=== PATIENT | female | born 1935 | race Caucasian/White ===

== ENCOUNTER 2016-12-11 13:44 | Outpatient (CLI) | payer MEDICARE, OTHER | END 2016-12-11 13:45 | disposition home or self-care (01) | DX: M85.88 Other specified disorders of bone density and structure, other site (principal) ==

== ENCOUNTER 2016-12-29 13:45 | Outpatient (CLI) | payer MEDICARE, OTHER | END 2016-12-29 13:46 | disposition home or self-care (01) | DX: M75.101 Unspecified rotator cuff tear or rupture of right shoulder, not specified as traumatic (principal); M75.51 Bursitis of right shoulder; M75.81 Other shoulder lesions, right shoulder ==

== ENCOUNTER 2017-04-01 12:55 | Outpatient (CLI) | payer MEDICARE, OTHER | END 2017-04-01 12:56 | disposition home or self-care (01) | DX: E04.2 Nontoxic multinodular goiter (principal) ==

== ENCOUNTER 2017-05-26 16:26 | Outpatient (CLI) | payer MEDICARE, OTHER ==
[2017-05-26 16:45] LABS: BASOPHILS # (AUTO) 0.1 10^3/uL (0.0-0.1); BASOPHILS % (AUTO) 0.7 %; EOSINOPHILS # (AUTO) 0.1 10^3/uL (0.0-0.7); HCT - HEMATOCRIT 40.8 % (37.0-47.0); HGB - HEMOGLOBIN 13.5 g/dL (12.0-16.0); LYMPHOCYTES # (AUTO) 2.4 10^3/uL (1.5-3.5); LYMPHOCYTES % (AUTO) 33.8 %; MEAN CORPUSCULAR HGB CONC 33.1 g/dL (32.0-36.0); MEAN CORPUSCULAR VOLUME 87.8 fL (81.0-99.0); MEAN PLATELET VOLUME 8.2 fL (7.9-10.8); MONOCYTES # (AUTO) 0.5 10^3/uL (0.0-1.0); MONOCYTES % (AUTO) 7.8 %; NEUTROPHILS # (AUTO) 3.9 10^3/uL (1.5-6.6); NEUTROPHILS % (AUTO) 55.7 %; RED BLOOD COUNT 4.65 10^6/uL (4.20-5.40); RED CELL DISTRIBUTION WIDTH 13.5 % (12.0-15.0)
== END 2017-05-26 16:27 | disposition home or self-care (01) ==
LOC: LAB 16:26
PROVIDERS: ATTEND Orthopaedic Surgery
DX: T84.84XA Pain due to internal orthopedic prosthetic devices, implants and grafts, initial encounter (principal)
CPT/HCPCS: 36415; 85025; 85651; 86140

== ENCOUNTER 2017-06-10 13:14 | Outpatient (CLI) | payer MEDICARE, OTHER ==
[2017-06-10 13:25] LABS: CREATININE 0.8 mg/dL (0.4-1.0)
[2017-06-10] MEDS ORDERED: GADOBUTROL 7.5 MMOL/7.5 ML VIAL IVP ONE (14:38)
--- NOTE | 2017-06-11 17:16 | MRI Report ---
EXAM: MRI LUMBAR SPINE WITHOUT AND WITH CONTRAST EXAM DATE: 06/10/2017 02:45 PM. CLINICAL HISTORY: Dorsalgia, unspecified. COMPARISONS: None. TECHNIQUE: Multiplanar, multisequence T1-weighted and fluid-sensitive sequences of the lumbar spine f rom T12 to S1 before and after administration of intravenous contrast. IV contrast: Gadolinium. Other : None. FINDINGS: There is straightening of the normal lumbar lordosis. There is a mild decrease in the intervertebral disk space height at T10-T11, L1-L2, L2-L3, L3-L4, mild to moderate at L4-L5. There is a grade 1 ante rolisthesis of L4 on L5. There is desiccation of the disk spaces throughout the lumbar spine. The con us terminates at T12-L1 and is normal. There is a mild to moderate degree of atrophy of the paraspinal musculature. There is mild atrophy of the psoas musculature. There are small areas of Modic type I and type II endplate degenerative change within the L1-L2 throu gh L4-L5 endplates. There is a perineural cyst posterior to S2 measuring 14 x 17 mm. T12-L1: There is a small disk osteophyte complex abutting the sac producing a mild central canal sten osis. There is no significant foraminal stenosis. The facets are normal. L1-L2: There is a small disk osteophyte complex with annular tear abutting the sac producing a mild c entral canal stenosis. There is mild bilateral facet arthropathy. There is mild narrowing of the left neural foramen. L2-L3: There is a small disk osteophyte complex abutting the sac producing a mild central canal steno sis. There is mild bilateral facet arthropathy. There is moderate right and mild to moderate left avelina ral foraminal narrowing. L3-L4: There is a broad-based disk osteophyte complex abutting the sac producing a mild central canal stenosis. There is mild to moderate bilateral facet arthropathy. There is moderate ligamentum flavum hypertrophy. There is moderate right and left neural foraminal narrowing. L4-L5: There is a broad-based disk osteophyte complex abutting the sac with a large superimposed righ t paracentral extrusion of the disk that extends into the right lateral recess and in combination wit h right-sided facet arthropathy produces a severe right lateral recess stenosis and appears to entrap the traversing right L5 nerve root. Recommend correlation for right L5 radiculopathy. There is a mil [id number] central canal stenosis. There are surgical changes of hemilaminectomies. There is mild to moderate left and moderate right facet arthropathy. There is mild to moderate right and left christopher inal stenosis. L5-S1: There is moderate to severe bilateral facet arthropathy. There is a small disk bulge eccentric to the right producing mild narrowing of the right neural foramen. IMPRESSION: 1. There is a broad-based disk osteophyte complex abutting the sac at L4-L5 with a large superimposed right paracentral extrusion of the disk extending into the right lateral recess and in combination w ith facet arthropathy produces a severe right lateral recess stenosis with entrapment of the traversi ng right L5 nerve root. Recommend correlation for right L5 radiculopathy. There are surgical changes of bilateral hemilaminectomies. There is a mild to moderate central canal stenosis. 2. There is a broad-based disk osteophyte complex at L3-L4 producing a mild central canal stenosis. 3. There is a small disk osteophyte complex at L2-L3 producing a mild central canal stenosis. 4. There is a small disk osteophyte complex with annular tear abutting the sac producing a mild centr al canal stenosis. Comment: The following findings are so common in adults without low back pain that while we report th eir presence, they must be interpreted with caution and in the context of the clinical situation. (Re maren Allen et al, Spine 2001) Prevalence of findings in patients without low back pain: Disk degeneration (any evidence): 92% Disk desiccation/T2 signal loss: 83% Disk height loss: 56% Disk bulge: 64% Disk protrusion: 32% Annular tear/high intensity zone: 38% [facility] Referring Provider Line: [phone] SITE ID: [id number]
== END 2017-06-10 13:15 | disposition home or self-care (01) ==
LOC: DI 13:14
PROVIDERS: ATTEND Orthopaedic Surgery
DX: M25.551 Pain in right hip (principal); M79.651 Pain in right thigh; M48.06 Spinal stenosis, lumbar region
CPT/HCPCS: 36415; 72158; 82565; A9585

== ENCOUNTER 2017-09-17 15:34 | Outpatient (CLI) | payer MEDICARE, OTHER ==
[2017-09-17 19:24] LABS: THYROID STIMULATING HORMONE 1.02 uIU/mL (0.34-5.60)
== END 2017-09-17 15:35 | disposition home or self-care (01) ==
LOC: LAB.WCP 15:34
PROVIDERS: ATTEND Physician Assistant Medical
DX: E04.2 Nontoxic multinodular goiter (principal)
CPT/HCPCS: 36415; 84432; 84439; 84443; 84481; 86800

== ENCOUNTER 2018-01-19 14:48 | Outpatient (CLI) | payer MEDICARE, OTHER ==
[2018-01-19 19:09] LABS: BASOPHILS % (AUTO) 0.8 %; EOSINOPHILS # (AUTO) 0.3 10^3/uL (0.0-0.7); EOSINOPHILS % (AUTO) 5.3 %; HGB - HEMOGLOBIN 12.3 g/dL (12.0-16.0); LYMPHOCYTES % (AUTO) 32.2 %; MEAN CORPUSCULAR HEMOGLOBIN 26.5 pg (27.0-31.0); MEAN CORPUSCULAR HGB CONC 31.9 g/dL (32.0-36.0); MEAN CORPUSCULAR VOLUME 82.8 fL (81.0-99.0); MEAN PLATELET VOLUME 9.2 fL (7.9-10.8); MONOCYTES # (AUTO) 0.5 10^3/uL (0.0-1.0); MONOCYTES % (AUTO) 8.5 %; NEUTROPHILS # (AUTO) 3.4 10^3/uL (1.5-6.6); NEUTROPHILS % (AUTO) 53.2 %; PLT - PLATELET COUNT 240 10^3/uL (130-450); RED BLOOD COUNT 4.65 10^6/uL (4.20-5.40); RED CELL DISTRIBUTION WIDTH 16.6 % (12.0-15.0); WHITE BLOOD COUNT 6.3 x10^3/uL (4.8-10.8)
[2018-01-19 19:12] LABS: ALBUMIN 4.1 g/dL (3.2-5.5); ALBUMIN/GLOBULIN RATIO 1.4 (1.0-2.2); BILIRUBIN,TOTAL 0.4 mg/dL (0.2-1.0); CALCIUM 9.6 mg/dL (8.5-10.3)
== END 2018-01-19 14:49 ==
LOC: LAB.WCP 14:48
PROVIDERS: ATTEND Family Medicine
DX: R10.11 Right upper quadrant pain (principal)
CPT/HCPCS: 36415; 80053; 85025

== ENCOUNTER 2018-01-20 13:41 | Outpatient (CLI) | payer MEDICARE, OTHER ==
[2018-01-20] MEDS ORDERED: IOPAMIDOL-300 100 ML VIAL IVP ONE (15:14)
[2018-01-20] MEDS ORDERED: IOPAMIDOL-300 50 ML VIAL PO ONE (15:14)
--- NOTE | 2018-01-21 11:41 | CT Report ---
CT OF THE ABDOMEN WITH CONTRAST: 01/20/2018 CLINICAL INDICATION: Right upper quadrant pain. TECHNIQUE: Axial CT images of the abdomen were obtained with 100 mL Isovue 300 intravenously as well as oral contrast. FINDINGS: Limited evaluation of the lung bases demonstrates calcified granulomas and calcified lymph nodes. ABDOMEN: The liver is unremarkable. The spleen demonstrates multiple old calcified granulomas. The adrenal glands and pancreas are unremarkable. The kidneys demonstrate no hydronephrosis or focal renal lesion. The gallbladder demonstrates multiple calculi. No pericholecystic inflammation is appreciated. No bowel dilatation, free gas, or free fluid is seen. No abdominal adenopathy is appreciated. Osseous structures demonstrate degenerative changes. IMPRESSION: CHOLELITHIASIS. In accordance with CT protocol optimization, one or more of the following dose reduction techniques were utilized for this exam: automated exposure control, adjustment of mA and/or KV based on patient size, or use of iterative reconstructive technique. TD: 01/21/2018 11:40
== END 2018-01-20 13:42 | disposition home or self-care (01) ==
LOC: DI 13:41
PROVIDERS: ATTEND Family Medicine
DX: K80.20 Calculus of gallbladder without cholecystitis without obstruction (principal)
CPT/HCPCS: 74160; Q9967

== ENCOUNTER 2018-03-04 11:31 | Outpatient (CLI) | payer MEDICARE, OTHER ==
[2018-03-04 19:36] LABS: ALBUMIN 4.1 g/dL (3.2-5.5); ALBUMIN/GLOBULIN RATIO 1.5 (1.0-2.2); BILIRUBIN,TOTAL 0.6 mg/dL (0.2-1.0); CALCIUM 9.1 mg/dL (8.5-10.3); TOTAL PROTEIN 6.9 g/dL (6.7-8.2)
[2018-03-04 19:37] LABS: BASOPHILS # (AUTO) 0.1 10^3/uL (0.0-0.1); BASOPHILS % (AUTO) 0.8 %; EOSINOPHILS # (AUTO) 0.3 10^3/uL (0.0-0.7); EOSINOPHILS % (AUTO) 4.7 %; HGB - HEMOGLOBIN 12.8 g/dL (12.0-16.0); LYMPHOCYTES # (AUTO) 2.1 10^3/uL (1.5-3.5); LYMPHOCYTES % (AUTO) 29.6 %; MEAN CORPUSCULAR HEMOGLOBIN 27.3 pg (27.0-31.0); MEAN CORPUSCULAR HGB CONC 31.7 g/dL (32.0-36.0); MEAN CORPUSCULAR VOLUME 86.2 fL (81.0-99.0); MONOCYTES # (AUTO) 0.6 10^3/uL (0.0-1.0); MONOCYTES % (AUTO) 8.9 %; NEUTROPHILS # (AUTO) 3.9 10^3/uL (1.5-6.6); PLT - PLATELET COUNT 238 10^3/uL (130-450); RED BLOOD COUNT 4.67 10^6/uL (4.20-5.40); RED CELL DISTRIBUTION WIDTH 15.5 % (12.0-15.0)
== END 2018-03-04 11:32 | disposition home or self-care (01) ==
LOC: LAB.WCP 11:31
PROVIDERS: ATTEND Family Medicine
DX: M51.06 Intervertebral disc disorders with myelopathy, lumbar region (principal)
CPT/HCPCS: 36415; 80053; 85025

== ENCOUNTER 2018-04-29 08:00 | Outpatient (CLI) | payer MEDICARE, OTHER ==
[2018-04-29 12:57] LABS: THYROID STIMULATING HORMONE 1.53 uIU/mL (0.34-5.60)
[2018-04-29 12:58] LABS: FREE T4 (FREE THYROXINE) 0.66 ng/dL (0.58-1.64)
[2018-04-29 13:02] LABS: BASOPHILS % (AUTO) 0.6 %; EOSINOPHILS # (AUTO) 0.2 10^3/uL (0.0-0.7); EOSINOPHILS % (AUTO) 4.1 %; LYMPHOCYTES % (AUTO) 33.6 %; MEAN CORPUSCULAR HGB CONC 32.6 g/dL (32.0-36.0); MEAN PLATELET VOLUME 9.4 fL (7.9-10.8); MONOCYTES # (AUTO) 0.5 10^3/uL (0.0-1.0); NEUTROPHILS # (AUTO) 3.2 10^3/uL (1.5-6.6); NEUTROPHILS % (AUTO) 52.7 %; PLT - PLATELET COUNT 227 10^3/uL (130-450); RED BLOOD COUNT 4.65 10^6/uL (4.20-5.40); RED CELL DISTRIBUTION WIDTH 14.6 % (12.0-15.0); WHITE BLOOD COUNT 6.1 x10^3/uL (4.8-10.8)
[2018-04-29 13:16] LABS: ALBUMIN 3.7 g/dL (3.2-5.5); ALBUMIN/GLOBULIN RATIO 1.2 (1.0-2.2); BILIRUBIN,TOTAL 0.4 mg/dL (0.2-1.0); CALCIUM 9.3 mg/dL (8.5-10.3); CREATININE 0.7 mg/dL (0.4-1.0); TOTAL PROTEIN 6.9 g/dL (6.7-8.2)
== END 2018-04-29 08:01 | disposition home or self-care (01) ==
LOC: LAB.WCP 08:00
PROVIDERS: ATTEND Family Medicine
DX: R03.0 Elevated blood-pressure reading, without diagnosis of hypertension (principal); E04.2 Nontoxic multinodular goiter
CPT/HCPCS: 36415; 80053; 84439; 84443; 84481; 85025

== ENCOUNTER 2018-05-08 11:52 | Outpatient (CLI) | payer MEDICARE, OTHER ==
--- NOTE | 2018-05-09 08:15 | Ultrasound Report ---
Procedure Date: 05/08/2018 Accession Number: [id number] / [id number] Procedure: US - Head or Neck Soft Tissue CPT Code: FULL RESULT: EXAM: THYROID ULTRASOUND EXAM DATE: 05/08/2018 12:59 PM. CLINICAL HISTORY: GOITER,MULTINODULAR,DYSPHAGIA,UNSPECIFIED. COMPARISON: 04/01/2017. TECHNIQUE: Real time sonographic imaging of the thyroid was performed by the environmental lawyer. Multiple business banking representative static images were saved for review. FINDINGS: THYROID GLAND: Right Lobe: 7.3 x 3.4 x 5.1 cm, volume 66 cc. Previously 59 cc Diffusely heterogeneous filled with multiple nodules Left Lobe: 5.7 x 2.3 x 2.7 cm, volume 18.5 cc. . Previously 17 cc Diffusely heterogeneous filled with multiple nodules Isthmus: 1.2 cm AP. Enlarged LYMPH NODES: No adenopathy demonstrated in the central or lateral compartment. OTHER: None. IMPRESSION: Stable Diffuse multinodular goiter with markedly enlarged right lobe and mildly enlarged left lobe Management recommendations are based on 2015 [place] [employer] Management Guidelines for Adult Patients with Thyroid Nodules and Differentiated Thyroid Cancer. [facility]
== END 2018-05-08 11:53 | disposition home or self-care (01) ==
LOC: DI 11:52
PROVIDERS: ATTEND Family Medicine
DX: E04.2 Nontoxic multinodular goiter (principal); R13.10 Dysphagia, unspecified
CPT/HCPCS: 76536

== ENCOUNTER 2018-06-01 09:10 | Outpatient (CLI) | payer MEDICARE, OTHER ==
--- NOTE | 2018-06-01 13:12 | XRAY Report ---
Procedure Date: 06/01/2018 Accession Number: [id number] / [id number] Procedure: FL - Modified Barium Swallow W/SP CPT Code: FULL RESULT: EXAM: Modified Barium Swallow W/SP DATE: 06/01/2018 9:53 AM CLINICAL HISTORY: DYSPHAGIA,UNSPECIFIED COMPARISON: None. TECHNIQUE: Under the direction of speech pathology, patient swallowed various consistencies of barium under lateral fluoroscopic observation of the neck. Fluoroscopic exposure time: 44 seconds. Number of fluoroscopic images: 36. Cine fluoroscopy recorded. FINDINGS: Airway Protection: Normal epiglottic motion. No episodes of tracheal penetration or aspiration with all consistencies of barium. Other: None. Please also refer to full report from Speech Pathology. IMPRESSION: Normal modified barium swallow. No aspiration identified. [facility]
== END 2018-06-01 09:11 | disposition home or self-care (01) ==
LOC: DI 09:10
PROVIDERS: ATTEND Family Medicine
DX: R13.10 Dysphagia, unspecified (principal)
CPT/HCPCS: 74230; 92611; G8996; G8997; G8998

== ENCOUNTER 2018-06-24 13:32 | Outpatient (CLI) | payer MEDICARE, OTHER ==
[2018-06-24 19:22] LABS: CREATININE 0.9 mg/dL (0.4-1.0)
== END 2018-06-24 13:33 | disposition home or self-care (01) ==
LOC: LAB.WCP 13:32
PROVIDERS: ATTEND Orthopaedic Surgery
DX: R94.4 Abnormal results of kidney function studies (principal)
CPT/HCPCS: 36415; 82565; 84520

== ENCOUNTER 2018-12-14 15:56 | Outpatient (CLI) | payer MEDICARE, OTHER ==
--- NOTE | 2018-12-14 17:02 | XRAY Report ---
Reason: COUGH Procedure Date: 12/14/2018 Accession Number: [id number] / [id number] Procedure: WCP - Chest 2 View X-Ray CPT Code: 29980 FULL RESULT: EXAM: CHEST RADIOGRAPHY EXAM DATE: 12/14/2018 03:56 PM. CLINICAL HISTORY: COUGH. Wheezing. COMPARISON: CHEST 2 VIEW PA/LAT 09/11/2016 5:34 AM. TECHNIQUE: 2 views. FINDINGS: Lungs/Pleura: No focal opacities evident. No pleural effusion. No pneumothorax. Normal volumes. Mediastinum: Atherosclerotic aortic calcifications. Other: Old left rib fractures. Bones appear osteopenic. Generalized thoracic kyphosis. IMPRESSION: No consolidation demonstrated. [facility]
== END 2018-12-14 23:59 | disposition home or self-care (01) ==
LOC: DI.WCP 15:56
PROVIDERS: ATTEND Family Medicine
DX: R05 Cough (principal)
CPT/HCPCS: 71046

== ENCOUNTER 2019-10-20 14:54 | Outpatient (CLI) | payer MEDICARE, OTHER ==
--- NOTE | 2019-10-21 09:42 | XRAY Report ---
Reason: COUGH Procedure Date: 10/20/2019 Accession Number: [id number] / [id number] Procedure: WCP - Chest 2 View X-Ray CPT Code: 05730 Final Report FULL RESULT: EXAM: CHEST RADIOGRAPHY EXAM DATE: 10/20/2019 02:54 PM HISTORY: COUGH COMPARISON: CHEST 2 VIEW 12/14/2018 3:33 PM TECHNIQUE: Two Views FINDINGS: Lungs/Pleura: Mildly limited by under expansion. No apparent focal consolidation. No edema or pleural effusion. Cardiomediastinal silhouette: Mild cardiomegaly. Other: Mild scoliosis with a broad convex right curvature of the thoracic spine mid to lower aspects. IMPRESSION: Mild cardiomegaly. No acute cardiopulmonary disease. [facility]
== END 2019-10-20 23:59 | disposition home or self-care (01) ==
LOC: DI.WCP 14:54
PROVIDERS: ATTEND Family Medicine
DX: R05 Cough (principal); I51.7 Cardiomegaly
CPT/HCPCS: 71046

== ENCOUNTER 2020-09-02 07:00 | Outpatient (CLI) | payer MEDICARE, OTHER | END 2020-09-02 23:59 | disposition home or self-care (01) | LOC: LAB.R 07:00 | PROVIDERS: ATTEND Physician Assistant | DX: N39.0 Urinary tract infection, site not specified (principal) | CPT/HCPCS: 87086; 87181 ==

== ENCOUNTER 2020-12-02 08:00 | Outpatient (CLI) | payer MEDICARE, OTHER ==
[2020-12-02 17:56] LABS: BASOPHILS % (AUTO) 0.6 %; EOSINOPHILS # (AUTO) 0.6 10^3/uL (0.0-0.7); EOSINOPHILS % (AUTO) 8.9 %; HGB - HEMOGLOBIN 11.9 g/dL (12.0-16.0); LYMPHOCYTES # (AUTO) 1.9 10^3/uL (1.5-3.5); MEAN CORPUSCULAR HEMOGLOBIN 28.4 pg (27.0-31.0); MEAN CORPUSCULAR VOLUME 91.6 fL (81.0-99.0); MEAN PLATELET VOLUME 10.5 fL (7.9-10.8); MONOCYTES # (AUTO) 0.6 10^3/uL (0.0-1.0); MONOCYTES % (AUTO) 8.6 %; NEUTROPHILS # (AUTO) 3.9 10^3/uL (1.5-6.6); NEUTROPHILS % (AUTO) 54.5 %; PLT - PLATELET COUNT 260 10^3/uL (130-450); RED BLOOD COUNT 4.19 10^6/uL (4.20-5.40); RED CELL DISTRIBUTION WIDTH 14.2 % (12.0-15.0); WHITE BLOOD COUNT 7.2 x10^3/uL (4.8-10.8)
[2020-12-02 18:08] LABS: ALBUMIN 3.8 g/dL (3.2-5.5); ALBUMIN/GLOBULIN RATIO 1.1 (1.0-2.2); BILIRUBIN,TOTAL 0.5 mg/dL (0.2-1.0); CALCIUM 9.9 mg/dL (8.5-10.3); CREATININE 0.8 mg/dL (0.4-1.0); TOTAL PROTEIN 7.2 g/dL (6.7-8.2)
[2020-12-02 20:10] LABS: HEMOGLOBIN A1c% 5.4 % (4.27-6.07)
== END 2020-12-02 08:01 | disposition home or self-care (01) ==
LOC: LAB.WCP 08:00
PROVIDERS: ATTEND Family Medicine
DX: R73.01 Impaired fasting glucose (principal); E04.2 Nontoxic multinodular goiter; Z79.899 Other long term (current) drug therapy
CPT/HCPCS: 36415; 80053; 83036; 84443; 85025

== ENCOUNTER 2021-05-16 11:49 | Outpatient (CLI) | payer MEDICARE, OTHER | END 2021-05-16 23:59 | disposition home or self-care (01) | LOC: LAB.N 11:49 | PROVIDERS: ATTEND Emergency Medicine | DX: L03.115 Cellulitis of right lower limb (principal); L02.415 Cutaneous abscess of right lower limb | CPT/HCPCS: 87070; 87181; 87205 ==

== ENCOUNTER 2021-10-09 14:12 | Outpatient (CLI) | payer MEDICARE, OTHER ==
--- NOTE | 2021-10-09 15:56 | XRAY Report ---
PROCEDURE: Chest 2 View X-Ray INDICATIONS: DYSPNEA ON EXERTION TECHNIQUE: 2 view(s) of the chest. COMPARISON: 10/20/2009 FINDINGS: Surgical changes and devices: None. Lungs and pleura: No pleural effusions or pneumothorax. Lungs are clear. Mediastinum: Mediastinal contours are normal. Heart size is normal. Bones and chest wall: No suspicious bony abnormalities. Soft tissues appear unremarkable. IMPRESSION: No acute cardiopulmonary process demonstrated radiographically. Reviewed by: Puneet Keller MD on 10/09/2021 3:55 PM PST Approved by: Puneet Keller MD on 10/09/2021 3:55 PM [facility] Station ID: [id number]
== END 2021-10-09 14:13 | disposition home or self-care (01) ==
LOC: DI.N 14:12
PROVIDERS: ATTEND Physician Assistant Medical
DX: R06.09 Other forms of dyspnea (principal)

== ENCOUNTER 2021-11-21 08:00 | Outpatient (CLI) | payer MEDICARE, OTHER ==
[2021-11-21 12:29] LABS: BASOPHILS % (AUTO) 0.5 %; EOSINOPHILS # (AUTO) 0.3 10^3/uL (0.0-0.7); EOSINOPHILS % (AUTO) 5.3 %; HCT - HEMATOCRIT 40.6 % (37.0-47.0); HGB - HEMOGLOBIN 12.7 g/dL (12.0-16.0); LYMPHOCYTES # (AUTO) 2.4 10^3/uL (1.5-3.5); LYMPHOCYTES % (AUTO) 38.9 %; MEAN CORPUSCULAR HEMOGLOBIN 28.6 pg (27.0-31.0); MEAN CORPUSCULAR HGB CONC 31.3 g/dL (32.0-36.0); MEAN CORPUSCULAR VOLUME 91.4 fL (81.0-99.0); MEAN PLATELET VOLUME 11.3 fL (7.9-10.8); MONOCYTES # (AUTO) 0.5 10^3/uL (0.0-1.0); MONOCYTES % (AUTO) 7.5 %; NEUTROPHILS # (AUTO) 2.9 10^3/uL (1.5-6.6); NEUTROPHILS % (AUTO) 47.5 %; PLT - PLATELET COUNT 240 10^3/uL (130-450); RED BLOOD COUNT 4.44 10^6/uL (4.20-5.40); RED CELL DISTRIBUTION WIDTH 13.8 % (12.0-15.0)
[2021-11-21 12:45] LABS: ALBUMIN 4.2 g/dL (3.2-5.5); ALBUMIN/GLOBULIN RATIO 1.3 (1.0-2.2); ALKALINE PHOSPHATASE 39 IU/L (42-121); ALT ALANINE AMINOTRANSFERASE 22 IU/L (10-60); AST ASPARTATE AMINOTRANSFERASE 26 IU/L (10-42); BILIRUBIN,TOTAL 0.8 mg/dL (0.2-1.0); BUN - BLOOD UREA NITROGEN 21 mg/dL (6-20); CALCIUM 9.5 mg/dL (8.5-10.3); CARBON DIOXIDE - CO2 27 mmol/L (21-32); CHLORIDE 101 mmol/L (101-111); CHOL/HDL RATIO 4.1 (<4.4); CHOLESTEROL 235 mg/dL; CREATININE 0.8 mg/dL (0.4-1.0); GFR - MDRD 68 (>89); GLUCOSE 115 mg/dL (70-100); HDL CHOLESTEROL 57 mg/dL; LDL CHOLESTEROL,CALCULATED 155 mg/dL; LDL/HDL RATIO 2.7 (<4.4); POTASSIUM 3.9 mmol/L (3.5-5.0); SODIUM 139 mmol/L (135-145); TOTAL PROTEIN 7.5 g/dL (6.7-8.2); TRIGLYCERIDES 115 mg/dL; VLDL CHOLESTEROL 23 mg/dL
== END 2021-11-21 23:59 | disposition home or self-care (01) ==
LOC: LAB.WCP 08:00
PROVIDERS: ATTEND Physician Assistant Medical
DX: R73.01 Impaired fasting glucose (principal); R06.09 Other forms of dyspnea
CPT/HCPCS: 36415; 80053; 80061; 83721; 85025

== ENCOUNTER 2022-05-20 08:00 | Outpatient (CLI) | payer MEDICARE, OTHER ==
[2022-05-20 17:41] LABS: BILIRUBIN,URINE NEGATIVE (NEGATIVE); GLUCOSE, URINE (UA) NEGATIVE (NEGATIVE); KETONES,URINE (UA) NEGATIVE (NEGATIVE); LEUKOCYTE ESTERASE, URINE MODERATE (NEGATIVE); NITRITE,URINE NEGATIVE (NEGATIVE); OCCULT BLOOD,URINE SMALL (NEGATIVE); PROTEIN,URINE NEGATIVE (NEGATIVE); UROBILINOGEN,URINE 0.2 (NORMAL) E.U./dL (NORMAL)
[2022-05-20 17:42] LABS: CLARITY,URINE HAZY (CLEAR)
[2022-05-20 18:04] LABS: BACTERIA,URINE Rare /HPF (None Seen); SQUAMOUS EPITHELIAL CELL,UR RARE Squamous (<= Few); WBC,URINE >25 /HPF (0-5)
== END 2022-05-20 23:59 | disposition home or self-care (01) ==
LOC: LAB.N 08:00
PROVIDERS: ATTEND Emergency Medicine
DX: N39.0 Urinary tract infection, site not specified (principal)
CPT/HCPCS: 81001; 87086; 87181

== ENCOUNTER 2022-08-09 15:49 | Outpatient (CLI) | payer MEDICARE, OTHER | END 2022-08-09 15:50 | disposition EMS.NT | LOC: EMS 15:49 | DX: R06.00 Dyspnea, unspecified (principal); F41.9 Anxiety disorder, unspecified ==

== ENCOUNTER 2022-08-18 17:50 | Outpatient (CLI) | payer MEDICARE, OTHER | END 2022-08-18 23:59 | disposition short-term general hospital (02) | LOC: EMS 17:50 | DX: R06.00 Dyspnea, unspecified (principal); R05.9 Cough, unspecified; R09.89 Other specified symptoms and signs involving the circulatory and respiratory systems | CPT/HCPCS: A0425; A0429; A0888 ==

== ENCOUNTER 2023-06-24 12:42 | Outpatient (CLI) | payer MEDICARE, OTHER ==
[2023-06-24 13:20] LABS: ALBUMIN 4.2 g/dL (3.2-5.5); ALBUMIN/GLOBULIN RATIO 1.3 (1.0-2.2); BILIRUBIN,TOTAL 0.5 mg/dL (0.2-1.0); CALCIUM 9.5 mg/dL (8.5-10.3); CREATININE 0.9 mg/dL (0.6-1.3); POTASSIUM 4.2 mmol/L (3.5-4.5); TOTAL PROTEIN 7.4 g/dL (6.4-8.9)
--- NOTE | 2023-06-24 13:33 | DEXA Report ---
PROCEDURE: Dexa Spine and/or Hip INDICATIONS: OSTEOPENIA TECHNIQUE: Dual energy x-ray absorptiometry (DXA) was performed on a [employer] System. Regions measur ed are the AP Spine, femoral neck, and if needed forearm. COMPARISON: 12/11/2016 FINDINGS: Lumbar Spine: Bone Mineral Density 1.358 g/cm/cm,T score 1.5. Since the most recent prior study, there has been a statistically significant increase in bone mineral density by 10.5 percent. Left Femoral Neck: Bone Mineral Density 0.777 g/cm/cm, T score -1.9. Left Hip: Bone Mineral Density 0.860 g/cm/cm,T score -1.2. Since the most recent prior study, there has been a statistically significant decrease in bone mineral density by -2.5 percent. (T score greater or equal to -1.0: NORMAL) (T score from -1.1 to -2.4: OSTEOPENIA) (T score less than or equal to -2.5 to: OSTEOPOROSIS) Impression: By WHO criteria, this patient has low bone density (osteopenia). Interval statistical increase in bone minteral density of the lumbar spine. Interval statistical decr ease in bone minteral density of the hip. Patients with diagnosis of osteoporosis or osteopenia should have regular bone mineral density assess ment. For those eligible for Medicare, routine testing is allowed once every 2 years. Testing frequ ency can be increased for patients who have rapidly progressing disease or for those who are receivin g medical therapy to restore bone mass. Reviewed by: Isai Waite MD on 06/24/2023 1:31 PM PDT Approved by: Isai Waite MD on 06/24/2023 1:31 PM PDT Station ID: [id number]
--- NOTE | 2023-06-24 13:34 | XRAY Report ---
PROCEDURE: Chest 2 View X-Ray INDICATIONS: SOB TECHNIQUE: 2 views of the chest were acquired. COMPARISON: Chest x-ray 05/20/2023. FINDINGS: Surgical changes and devices: None. Lungs and pleura: No pleural effusions or pneumothorax. Lungs are clear. Mediastinum: Mediastinal contours appear normal. Atherosclerotic vascular calcifications of the tho racic aorta. Heart size is normal. Bones and chest wall: No suspicious bony lesions. Degenerative changes of the spine. Overlying soft tissues appear unremarkable. IMPRESSION: No acute cardiopulmonary process. Reviewed by: Isai Waite MD on 06/24/2023 1:32 PM PDT Approved by: Isai Waite MD on 06/24/2023 1:32 PM PDT Station ID: [id number]
== END 2023-06-24 12:43 | disposition home or self-care (01) ==
LOC: DI 12:42
PROVIDERS: ATTEND Physician Assistant Medical
DX: R06.02 Shortness of breath (principal); M85.80 Other specified disorders of bone density and structure, unspecified site; I35.1 Nonrheumatic aortic (valve) insufficiency
CPT/HCPCS: 36415; 80053; 83880

== ENCOUNTER 2023-10-22 12:16 | Outpatient (CLI) | payer MEDICARE, OTHER ==
--- NOTE | 2023-10-22 13:45 | XRAY Report ---
PROCEDURE: Chest 2 View X-Ray INDICATIONS: SHORTNESS OF BREATH TECHNIQUE: 2 views of the chest were acquired. COMPARISON: Chest x-ray 06/24/2023. FINDINGS: Surgical changes and devices: None. Lungs and pleura: No pleural effusions or pneumothorax. Lungs are clear. Mediastinum: Mediastinal contours appear normal. Atherosclerotic vascular calcifications. Heart siz e is normal. Bones and chest wall: No suspicious bony lesions. Degenerative changes of the spine. Overlying soft tissues appear unremarkable. IMPRESSION: No acute cardiopulmonary process. Reviewed by: Isai Waite MD on 10/22/2023 1:44 PM PST Approved by: Isai Waite MD on 10/22/2023 1:44 PM PST Station ID: [id number]
== END 2023-10-22 12:17 | disposition home or self-care (01) ==
LOC: DI 12:16
PROVIDERS: ATTEND Physician Assistant Medical
DX: R06.02 Shortness of breath (principal)

== ENCOUNTER 2024-01-18 07:50 | Outpatient (CLI) | payer MEDICARE, OTHER | END 2024-01-18 23:59 | disposition short-term general hospital (02) | LOC: EMS 07:50 | DX: S79.921A Unspecified injury of right thigh, initial encounter (principal); M54.50 Low back pain, unspecified; W18.39XA Other fall on same level, initial encounter; Y92.009 Unspecified place in unspecified non-institutional (private) residence as the place of occurrence of the external cause | CPT/HCPCS: A0425; A0427; A0888 ==

== ENCOUNTER 2024-06-20 16:43 | Outpatient (CLI) | payer MEDICARE, OTHER | END 2024-06-20 16:44 | disposition critical access hospital (66) | LOC: EMS 16:43 | DX: I95.9 Hypotension, unspecified (principal); R53.1 Weakness; R51.9 Headache, unspecified; R20.0 Anesthesia of skin; R53.83 Other fatigue | CPT/HCPCS: A0425; A0429 ==

== ENCOUNTER 2024-06-20 17:06 | Emergency (ER) | payer MEDICARE, OTHER ==
--- NOTE | 2024-06-20 17:33 | ED Physician Documentation ---
History of Present Illness - Stated complaint Stated Complaint: WEAK/SOA - Chief complaint Chief Complaint: General - History obtained from History obtained from: Patient, EMS - History of Present Illness Timing: Today Pain level max: 0 Pain level now: 0 - Additonal information Additional information: Patient is an 88-year-old female who who presents to the emergency department for "not feeling right" she states that she just felt weak and like something was not right. She states that she checked her blood pressure and it was low around 100 systolic. She states she normally runs 1 30-1 40. Does have a history of heart failure. No chest pain. She felt like she was "fluttering" in her body. EMS brought her to the emergency department and she states that she is feeling better now. She did physical therapy yesterday. No fevers. No cough. No congestion. No dyspnea. She is on diuretics at home. No recent illnesses. No focal neurological deficits. No focal weakness. No difficulty speaking or swallowing. Review of Systems Constitutional: denies: Fever, Chills Nose: denies: Rhinorrhea / runny nose, Congestion Respiratory: denies: Cough GI: denies: Vomiting, Diarrhea Skin: denies: Rash Musculoskeletal: denies: Neck pain, Back pain Neurologic: denies: Headache PD PAST MEDICAL HISTORY - Past Medical History Past Medical History: Yes Cardiovascular: Congestive heart failure, [place] Neuro: None Endocrine/Autoimmune: None GI: None : Other HEENT: None Psych: None Musculoskeletal: None Derm: None - Past Surgical History Past Surgical History: Yes Ortho: Hip replacement, Knee replacement - Present Medications Home Medications: Ambulatory Orders Medication Instructions Recorded Confirmed Gabapentin 600 mg PO BID 09/08/16 09/09/16 traZODone [Desyrel] 50 mg PO QPM PRN 09/09/16 09/09/16 Pregabalin [Lyrica] 200 mg PO BID 09/10/16 09/10/16 - Allergies Allergies/Adverse Reactions: Allergies Allergy/AdvReac Type Severity Reaction Status Date / Time levofloxacin [From Levaquin] Allergy Unknown Verified 06/20/24 17:21 - Social History Does the pt smoke?: No Smoking Status: Never smoker Does the pt drink ETOH?: No Does the pt have substance abuse?: No - Immunizations Immunizations are current?: Yes PD ED PE NORMAL - Vitals Vital signs reviewed: Yes - General General: Alert and oriented X 3, No acute distress - HEENT HEENT: PERRL, Moist mucous membranes - Neck Neck: Supple, no meningeal sign - Cardiac Cardiac: RRR, Strong equal pulses - Respiratory Respiratory: No respiratory distress, Clear bilaterally - Abdomen Abdomen: Soft, Non tender, Non distended - Derm Derm: Warm and dry - Extremities Extremities: Other (Trace edema bilateral lower extremity) - Neuro Neuro: Alert and oriented X 3, cooler servicer 2-12 intact, No motor deficit, No sensory deficit, Normal speech Eye Opening: Spontaneous Motor: Obeys Commands Verbal: Oriented GCS Score: 15 - Psych Psych: Normal mood, Normal affect Results - Vitals Vitals: Vital Signs - 24 hr 06/20/24 06/20/24 17:21 19:03 Temperature 36.5 C Heart Rate 64 64 Respiratory 18 15 Rate Blood Pressure 113/54 L 147/67 H O2 Saturation 95 98 Oxygen O2 Source Room air - EKG (time done) 1748 EKG releavant findings:: EKG personally interpreted by author of this note. Relevant findings are: Rate: Rate (enter#) (62) Rhythm: NSR [place]: Normal Intervals: Prolonged MA QRS: Normal, LVH Ischemia: Q waves (III, aVF) - Labs Labs: Laboratory Tests 06/20/24 06/20/24 06/20/24 17:27 17:27 17:27 WBC 7.9 RBC 3.76 L Hgb 10.3 L Hct 32.9 L MCV 87.5 MCH 27.4 MCHC 31.3 L RDW 14.8 Plt Count 265 MPV 10.4 Neut # (Auto) 4.2 Lymph # (Auto) 2.3 [place] # (Auto) 0.7 Eos # (Auto) 0.6 Baso # (Auto) 0.1 Absolute Nucleated RBC 0.00 Nucleated RBC % 0.0 Sodium 138 Potassium 4.0 Chloride 103 Carbon Dioxide 28 Anion Gap 7.0 BUN 23 H Creatinine 1.3 Estimated GFR (MDRD) 39 L Glucose 132 H Calcium 9.2 Phosphorus 4.0 Magnesium 1.7 Total Bilirubin 0.4 AST 17 ALT 10 Alkaline Phosphatase 50 Troponin I High Sens 12.5 B-Natriuretic Peptide 82 Total Protein 6.8 Albumin 3.8 Globulin 3.0 Albumin/Globulin Ratio 1.3 Lipase 47 - Rads (name of study) cxr Relevant Findings:: Final report received, See rad report PD Medical Decision Making - ED course Complexity details: reviewed results, re-evaluated patient, considered differential, d/w patient ED course: 88-year-old female given IV fluids. Asymptomatic here. She is very well- appearing, nontoxic. Afebrile. No focal neurological deficits. NIH stroke scale of 0. Troponin is negative. Ambulating without difficulty. Possible that she is starting to develop a viral syndrome? She does have a history of pneumonia, but is not febrile, not coughing, no elevated white blood cell count. No evidence of pneumonia clinically. Therefore we will hold antibiotics at this time, possible scarring in the lungs given her prior infections? Patient counseled regarding signs and symptoms for which I believe and urgent re- evaluation would be necessary. Patient with good understanding of and agreement to plan and is comfortable going home at this time This document was made in part using voice recognition software. While efforts are made to proofread this document, sound alike and grammatical errors may occur. Departure - Departure Disposition: 01 Home, Self Care Clinical Impression: Dehydration Condition: Good Instructions: ED Dehydration Follow-Up: Minerva Grey PA-C [Primary Care Provider] - Within 1 week Comments: Please continue your current medications at home. Your laboratory testing does not show any significant abnormalities today. Your chest x-ray may show an early viral illness, but you are not having symptoms such as fever and coughing, these may however develop over the next day or 2. Please return if you worsen. Forms: PCP List Discharge Date/Time: 06/20/24 19:03
[2024-06-20 17:39] LABS: BASOPHILS # (AUTO) 0.1 10^3/uL (0.0-0.1); BASOPHILS % (AUTO) 0.6 %; EOSINOPHILS # (AUTO) 0.6 10^3/uL (0.0-0.7); EOSINOPHILS % (AUTO) 7.4 %; HCT - HEMATOCRIT 32.9 % (37.0-47.0); HGB - HEMOGLOBIN 10.3 g/dL (12.0-16.0); LYMPHOCYTES # (AUTO) 2.3 10^3/uL (1.5-3.5); LYMPHOCYTES % (AUTO) 29.2 %; MEAN CORPUSCULAR HEMOGLOBIN 27.4 pg (27.0-31.0); MEAN CORPUSCULAR HGB CONC 31.3 g/dL (32.0-36.0); MEAN CORPUSCULAR VOLUME 87.5 fL (81.0-99.0); MEAN PLATELET VOLUME 10.4 fL (7.9-10.8); MONOCYTES # (AUTO) 0.7 10^3/uL (0.0-1.0); MONOCYTES % (AUTO) 9.3 %; NEUTROPHILS # (AUTO) 4.2 10^3/uL (1.5-6.6); NEUTROPHILS % (AUTO) 53.1 %; PLT - PLATELET COUNT 265 10^3/uL (130-450); RED BLOOD COUNT 3.76 10^6/uL (4.20-5.40); RED CELL DISTRIBUTION WIDTH 14.8 % (12.0-15.0); WHITE BLOOD COUNT 7.9 x10^3/uL (4.8-10.8)
[2024-06-20 17:51] LABS: MAGNESIUM 1.7 mg/dL (1.7-2.3)
[2024-06-20 17:55] LABS: TROPONIN I HIGH SENSITIVITY 12.5 ng/L (2.3-14.8)
[2024-06-20 17:57] LABS: ALBUMIN 3.8 g/dL (3.2-5.5); ALBUMIN/GLOBULIN RATIO 1.3 (1.0-2.2); BILIRUBIN,TOTAL 0.4 mg/dL (0.2-1.0); CALCIUM 9.2 mg/dL (8.5-10.3); CREATININE 1.3 mg/dL (0.6-1.3); TOTAL PROTEIN 6.8 g/dL (6.4-8.9)
--- NOTE | 2024-06-20 18:05 | XRAY Report ---
PROCEDURE: Chest 1V INDICATIONS: weakness, chf h/o TECHNIQUE: One view of the chest was acquired. COMPARISON: 10/22/2023 FINDINGS: Surgical changes and devices: None. Lungs and pleura: Low lung volumes. Mild bibasilar opacities are present. Mediastinum: Heart size is at the upper lateral normal. Bones and chest wall: Degenerative changes IMPRESSION: Low lung volumes. Mild bibasilar opacities are present likely representing airspace disease and/or ed bernie. Superimposed atelectasis is likely. Consider future imaging surveillance to assess for resolution. Reviewed by: Doron Lamas MD on 06/20/2024 6:04 PM PDT Approved by: Doron Lamas MD on 06/20/2024 6:04 PM PDT Station ID: [id number]
[2024-06-20] MEDS: SODIUM CHLORIDE 0.9% 1,000 ML IV STA (18:15)
[2024-06-20 19:13] VITALS: BP 147/67; O2SAT 98
== END 2024-06-20 19:03 | disposition home or self-care (01) ==
LOC: EDUNIT# → ED 17:06
DX: E86.0 Dehydration (principal); I50.9 Heart failure, unspecified; I25.2 Old myocardial infarction; Z79.899 Other long term (current) drug therapy
CPT/HCPCS: 36415; 80053; 83690; 83735; 83880; 84100; 84484; 85025; 93005; 96360; 99283